=== PATIENT | male | born 1975 | race African-American/Black ===

== ENCOUNTER 2018-07-25 17:07 | Emergency (ER) | payer OTHER ==
[~2018-07-25 17:07] MED LIST: CYCLOBENZAPRINE10 M1 PO; MOBIC15 M1 PO
--- NOTE | 2018-07-25 18:42 | CT SCAN REPORT ---
EXAMINATION: CT ABDOMEN AND PELVIS WITHOUT CONTRAST CLINICAL INFORMATION: Back pain. COMPARISON: Lumbar spine 07/14/2018 TECHNIQUE: Multidetector volumetric imaging was performed from the superior aspect of the liver through the pubic symphysis. Sagittal and coronal reformatted images were obtained on the technologist's workstation. Coronal, sagittal and axial reconstructed images of the lumbar spine were also performed. DLP: 291.09 mGy-cm FINDINGS: LUNG BASES: The visualized lung bases are unremarkable. LIVER, GALLBLADDER, AND BILIARY TREE: The liver is normal in size, shape, and attenuation. No focal hepatic lesion or biliary ductal dilatation is present. The gallbladder is unremarkable with no evidence of radiopaque gallstones, gallbladder wall thickening, or obvious pericholecystic inflammatory changes. PANCREAS: Unremarkable. SPLEEN: Unremarkable. ADRENAL GLANDS: Unremarkable. KIDNEYS AND URETERS: The kidneys are normal in size, shape, and attenuation. No hydronephrosis, hydroureter, or calculi seen. No perinephric stranding. BLADDER: Unremarkable. GASTROINTESTINAL TRACT: There is a large volume of stool throughout the colon seen from the cecum through the pelvis. There is no acute change of the bowel. There is no bowel obstruction. There is no bowel wall thickening or edema. The appendix is normal. The small bowel loops are unremarkable. ABDOMINAL WALL: No significant hernia is appreciated. LYMPH NODES: Normal. VASCULAR: Unremarkable. PELVIC VISCERA: Unremarkable. OSSEOUS STRUCTURES: Lumbar spine: Lumbar vertebrae have normal height and alignment. Lumbar disc heights are normal. No focal disc protrusion. There is no central canal stenosis. The neural foramina are open. No spondylolysis or spondylolisthesis. The sacroiliac joints are normal. Other: No acute osseous abnormality. IMPRESSION: 1. No acute abnormality of the abdomen or pelvis. There is a large volume of stool in the colon but there is no acute abnormality of the bowel. 2. Normal lumbar spine.
[2018-07-25] MEDS ORDERED: LIDODERM1 EACH TOP (19:26)
[2018-07-25] MEDS ORDERED: NAPROSYN500 M1 PO (19:26)
[2018-07-25] MEDS ORDERED: MEDROL4 M2 PO (19:26)
--- NOTE | 2018-07-25 19:27 | ED GENERAL ADULT ---
History of Present Illness General Chief Complaint: General Adult Stated Complaint: R SIDE PAIN THAT RADIATES DOWN R LEG PER PT Source: patient, family Exam Limitations: no limitations Vital Signs & Intake/Output Vital Signs & Intake/Output Vital Signs Date Time Temp Pulse Resp B/P B/P Pulse O2 O2 Flow FiO2 Mean Ox Delivery Rate 07/25 1956 98.7 79 18 116/78 97 Room Air 07/25 1816 Room Air 07/25 1805 98.8 07/25 1714 96.8 80 18 122/87 97 Room Air Allergies Coded Allergies: No Known Allergies (07/14/18) Reconcile Medications Cyclobenzaprine HCl 10 MG TABLET 1 TAB PO QPM PRN muscle strain Lidocaine (Lidoderm) 5 % ADH..PATCH 1 PAT TOP DAILY PRN pain may wear up to 12 hours Meloxicam (Mobic) 15 MG TABLET 1 TAB PO DAILY PRN pain Methylprednisolone. (Medrol) 4 MG TAB.DS.PK 1 DP PO AD sciatica 6 on day 1 then reduce by one tablet daily until gone Naproxen (Naprosyn) 500 MG TABLET 1 TAB PO BID PRN pain Triage Note: 43 Y/O MALE RETURNS FOR EVAL OF R LOW BACK PAIN RADIATING DOWN R LEG X 2.5 WEEKS. PT STATES HE WAS EVAL'D IN ED AND PRESCRIBED MEDS, WHICH WERE HELPING HOWEVER PT SNEEZED YESTERDAY AND "FELT A POP". HAS HAD WORSENING PAIN SINCE SNEEZE. FAMILY ALSO STATES PT'S XRAY FROM LAST VISIT SHOWED "STOOL" - FAMILY REQUESTING EVAL OF ABDOMEN WELL. EVAL'D BY PHIL PEREZ IN TRIAGE Triage Nurses Notes Reviewed? yes Onset: Gradual Duration: week(s): Timing: constant HPI: 43-year-old male with no known past medical history presenting with right lower back pain radiating to his right lower extremity over the past ~4 weeks. Reports pain that is worse with movement. Patient was seen in the emergency department for the same 11 days ago, and was diagnosed with lumbar radiculopathy. He was discharged home with Mobic and Flexeril which which he had been using with good relief. Reports that yesterday his pain acutely worsened after he had sneezed and then felt abrupt onset of pain to his right lower back. Denies fevers, IV drug use, saddle anesthesia, urinary/bowel incontinence/retention. During his prior ER visit he had an x-ray that did not show any bony pathology, but he was noted to have a large stool burden. He was given a bowel regimen which he has been taking. He has been able to move his bowels and denies abdominal pain. Him and his are requesting imaging of the abdomen to assess whether or not his stool burden is improving. Past History Travel History Traveled to [place] past 21 day No Medical History Any Pertinent Medical History? none Neurological: NONE EENT: NONE Cardiovascular: NONE Respiratory: NONE Gastrointestinal: NONE Hepatic: NONE Renal: NONE Musculoskeletal: NONE Psychiatric: NONE Endocrine: NONE Blood Disorders: NONE Cancer(s): NONE RISK CONTROL REPRESENTATIVE/Reproductive: NONE Surgical History Surgical History: non-contributory Psychosocial History What is your primary language Serbian Tobacco Use: Never used Family History Hx Contributory? No Review of Systems Review of Systems Constitutional: Reports: no symptoms. EENTM: Reports: no symptoms. Respiratory: Reports: no symptoms. Cardiovascular: Reports: no symptoms. GI: Reports: no symptoms. Genitourinary: Reports: no symptoms. Musculoskeletal: Reports: see HPI. Skin: Reports: no symptoms. Neurological/Psychological: Reports: no symptoms. Hematologic/Endocrine: Reports: no symptoms. Immunologic/Allergic: Reports: no symptoms. All Other Systems: Reviewed and Negative Physical Exam Physical Exam General Appearance: well developed/nourished, no apparent distress, alert, awake Comments: Gen.: Well-nourished, well-developed, no acute distress. Head: Normocephalic, atraumatic. Eyes: Normal inspection bilaterally Ears: Normal inspection bilaterally Nose: Normal inspection Neck: Normal inspection Lungs: clear to auscultation bilaterally, normnal breath sounds Heart: regular rate and rhythm Abdomen: soft and non-tender Back: Normal inspection, decreased spinal range of motion, positive tenderness to palpation over the right lower lumbar muscles, no midline tenderness to palpation Extremities: Normal inspection, bilateral lower extremities are neurovascularly intact, negative straight leg raise Neurologic: alert and oriented x3, patient refusing to attempt ambulation Skin: warm and dry Psychiatric: Normal mood and affect, no apparent delusions or hallucinations, behavior appropriate Core Measures ACS in differential dx? No CVA/TIA Diagnosis: No Sepsis Present: No Sepsis Focused Exam Completed? No Progress Differential Diagnoses I considered the following diagnoses in my evaluation of the patient: [MSK strain versus disc herniation versus lumbar radiculopathy, low concern for vertebral fracture versus cauda equina versus epidural abscess] Plan of Care: CT scan 1. No acute abnormality of the abdomen or pelvis. There is a large volume of stool in the colon but there is no acute abnormality of the bowel. 2. Normal lumbar spine. Patient reports significant pain relief after Toradol and Solu-Medrol. He now has good range of motion of his spine and is able to bear weight and ambulate without difficulty. Likely with sciatica/lumbar radiculopathy that was acutely worsened with forceful sneezing. He was given Medrol Dosepak to use in addition to NSAIDs, Flexeril, and Lidoderm patches. We will follow-up with his PMD for further evaluation and given strict return precautions. Initial ED EKG: none Departure Departure Disposition: HOME OR SELF CARE Condition: Stable Clinical Impression Primary Impression: Lumbar radiculopathy Referrals: Patient Has No Primary Care Dr (PCP/Family) Additional Instructions: Stop taking Mobic. Use naproxen, Lidoderm patches, and Flexeril as needed for pain. Take the Medrol Dosepak as prescribed. Follow-up with a primary care provider to establish care and for reevaluation. Return to the emergency department for any new or worsening symptoms. Departure Forms: Customer Survey General Discharge Information Prescriptions: Current Visit Scripts Naproxen (Naprosyn) 1 TAB PO BID PRN pain #60 TAB Lidocaine (Lidoderm) 1 PAT TOP DAILY PRN pain #30 PAT may wear up to 12 hours Methylprednisolone. (Medrol) 1 DP PO AD #1 DP 6 on day 1 then reduce by one tablet daily until gone Critical Care Note Critical Care Note Critical Care Time: non-applicable
[2018-07-25 19:56] VITALS: BP 116/78
== END 2018-07-25 19:57 ==
LOC: ERH 17:07
DX: M54.16 Radiculopathy, lumbar region (principal); M54.5 Low back pain
CPT/HCPCS: 74176; 96372; J1885; J2930